=== PATIENT | male | born 1980 | race Caucasian/White ===

== ENCOUNTER 2024-05-03 11:55 | Inpatient (IN) | payer MEDICAID ==
[2024-05-03] VITALS (19 sets, daily range): BP systolic 92–167; BP diastolic 77–109; PULSE 105–119; RESP 12–28; O2SAT 89–98
[~2024-05-03] VITALS: Ht 170.2 cm; Wt 105.8 kg
[2024-05-03] MEDS: propofol 1000mg/100ml bottle 100 ML IV ONE (13:09)
[2024-05-03] MEDS ORDERED: fentaNYL 50mcg/ml PF inj. 2,500 MCG in normal saline 250ml IV soln 200 ML IV SCH (13:25)
[2024-05-03] MEDS: FENTANYL 1000MCG/NS 100 ML BAG /PF IV SCH (13:30)
[2024-05-03 14:01] LABS: ABG BASE EXCESS -2.3 mmol/L (-2.0-3.0); ABG HCO3 24.3 mmol/L (21.0-28.0); ABG OXYGEN SATURATION 94.9 % (94.0-98.0); ABG PCO2 (T) 52.7 mmHg (35.0-48.0); ABG PH (T) 7.285 (7.350-7.450); ABG PO2 (T) 92.9 mmHg (83.0-108.0); ALLEN'S TEST POSITIVE; FCOHb 0.4 % (0.5-1.5); FHHb 5.1 % (0.0-5.0); FMetHb 0.1 % (0.0-1.5); FO2Hb 94.4 % (94.0-98.0); MODE VENT - AC; PATIENT TEMPERATURE 37.6; PEEP 12 cm H2O; RESPIRATORY RATE 12 b/min; TIDAL VOLUME 450 mL; TOTAL HEMOGLOBIN 8.5 G/dl (13.5-17.5)
[2024-05-03] MEDS: COMMUNICATION ORDER 1 EA MISC MC ONE (14:10)
[2024-05-03 15:34] LABS: BASOPHILS # (AUTO) 0.1 X10'3 (0-0.2); BASOPHILS % (AUTO) 0.7 % (0-1); EOSINOPHILS # (AUTO) 0.2 X10'3 (0-0.9); EOSINOPHILS % (AUTO) 1.4 % (0-6); HEMATOCRIT 22.2 % (42.0-52.0); HEMOGLOBIN 7.3 g/dl (14.0-17.9); LYMPHOCYTES # (AUTO) 1.4 X10'3 (1.1-4.8); LYMPHOCYTES % (AUTO) 9.4 % (21-51); MEAN CORPUSCULAR HEMOGLOBIN 29.5 PG (27.0-31.0); MEAN CORPUSCULAR HGB CONC 32.7 g/dL (33.0-36.5); MEAN CORPUSCULAR VOLUME 90.1 FL (78-98); MEAN PLATELET VOLUME 7.4 FL (7.4-10.4); MONOCYTES # (AUTO) 0.8 X10'3 (0-0.9); MONOCYTES % (AUTO) 5.7 % (2-12); NEUTROPHILS % (AUTO) 82.8 % (42-75); PLATELET COUNT 489 X10'3 (140-440); RED BLOOD COUNT 2.47 X10'6 (4.70-6.10); RED CELL DISTRIBUTION WIDTH 18.4 % (11.5-14.5); WHITE BLOOD COUNT 14.5 X10'3 (4.5-11.0)
[2024-05-03 15:35] LABS: ALANINE AMINOTRANSFERASE 16 U/L (12-78); ALBUMIN 1.7 G/DL (3.4-5.0); ALBUMIN/GLOBULIN RATIO 0.3 (1.1-1.5); ALKALINE PHOSPHATASE 84 IU/L (46-116); ANION GAP 13 (8-16); ASPARTATE AMINO TRANSFERASE 31 U/L (10-37); BILIRUBIN,TOTAL 0.5 MG/DL (0.1-1.0); BLOOD UREA NITROGEN 63 MG/DL (7-18); BUN/CREATININE RATIO 23.6 (10.0-20.0); CALCIUM 9.1 MG/DL (8.5-10.1); CHLORIDE 90 MMOL/L (99-107); CREATININE 2.67 MG/DL (0.60-1.10); GLUCOSE 129 MG/DL (70-104); MAGNESIUM 2.1 MG/DL (1.5-2.4); PHOSPHORUS 8.1 MG/DL (2.3-4.5); POTASSIUM 3.9 MMOL/L (3.5-5.1); SODIUM 128 MMOL/L (135-145); TOTAL CARBON DIOXIDE 25.4 MMOL/L (24-32); eCRCL 34 ML/MIN; eGFR 27 ML/MIN
[2024-05-03] MEDS: propofol 1000mg/100ml bottle 100 ML IV SCH (16:17)
[2024-05-03 16:22] LABS: ANISOCYTOSIS 2+; PLATELET ESTIMATE INCREASED; SMUDGE CELLS FEW; TOTAL CELLS COUNTED 100
[2024-05-03 16:23] LABS: ROULEAUX 3+; TEAR DROP CELLS FEW
[2024-05-03 16:49] LABS: BILIRUBIN,URINE NEGATIVE (Neg); CLARITY,URINE CLOUDY (Clear); COLOR,URINE YELLOW (Yellow); GLUCOSE, URINE NEGATIVE (Neg); KETONES,URINE NEGATIVE (Neg); LEUKOCYTE ESTERASE ,URINE NEGATIVE (Neg); NITRITES, URINE NEGATIVE (Neg); OCCULT BLOOD,URINE NEGATIVE (Neg); PH,URINE 5.5 (4.8-8.0); PROTEIN,URINE NEGATIVE (Neg); UROBILINOGEN,URINE 0.2 E.U/dL (0.2-1.0)
[2024-05-03 16:56] LABS: UA COLLECTION TYPE NON-SPECIFIED
[2024-05-03 17:04] LABS: URIC ACID CRYSTALS 2+ /HPF (NEGATIVE)
[2024-05-03 17:05] LABS: YEAST MANY /HPF (NEGATIVE)
[2024-05-03 17:06] LABS: BACTERIA,URINE FEW /HPF (Neg); RBC,URINE 0-2 /HPF (0-2); SQUAMOUS EPITHELIAL CELL,UR FEW /LPF (FEW); WBC,URINE 0-4 /HPF (0-4)
[2024-05-03] MEDS: fentaNYL 2,500 MCG in Normal Saline 250ml IV soln bag IV SCH (17:12)
[2024-05-03] MEDS ORDERED: morphine 2 MG/ML inj. syringe IV PRN (17:20)
[2024-05-03] MEDS ORDERED: ondansetron/PF 4mg/2ml inj IV PRN (17:20)
[2024-05-03] MEDS ORDERED: acetaminophen 325mg tablet PO PRN ×2 (17:20)
[2024-05-03] MEDS ORDERED: morphine 4 MG/ML inj SYRINge IV PRN (17:20)
[2024-05-03] MEDS ORDERED: ACET200V11 NEB (17:40)
[2024-05-03] MEDS ORDERED: Furosemide IV (17:40)
[2024-05-03] MEDS ORDERED: METOCLOPRAMIDE IV (17:40)
[2024-05-03] MEDS ORDERED: THIA50TA10 PO (17:40)
[2024-05-03] MEDS ORDERED: DILT30TA34 PO (17:40)
[2024-05-03] MEDS ORDERED: ZAR2.5T PO (17:40)
[2024-05-03] MEDS ORDERED: PANTOPRAZOLE (17:40)
[2024-05-03] MEDS ORDERED: ATR0.5NEB IH (17:40)
[2024-05-03] MEDS ORDERED: MAGN1PIG IV (17:40)
[2024-05-03] MEDS ORDERED: FENTANYL (17:40)
[2024-05-03] MEDS ORDERED: HEPARIN SQ (17:40)
[2024-05-03] MEDS ORDERED: POTASSIUM 20MEQ/15ML PO (17:40)
[2024-05-03] MEDS ORDERED: CHLO473M2 PO (17:40)
[2024-05-03] MEDS ORDERED: FOLI0.4T14 PO (17:40)
[2024-05-03] MEDS ORDERED: LEVE100034 IV (17:40)
[2024-05-03] MEDS ORDERED: CEFT2VIA12 IV (17:40)
[2024-05-03] MEDS ORDERED: CLON1PAT42 TD (17:40)
[2024-05-03] MEDS ORDERED: PROPOFOL (17:41)
[2024-05-03] MEDS ORDERED: VANC1VIA38 IV (17:41)
[2024-05-03] MEDS ORDERED: cloNIDine 0.2 MG/24 HR patch (7 day patch) TD SCH (18:00)
[2024-05-03] MEDS ORDERED: metoclopramide 5 mg/ml inj IV PRN (18:15)
[2024-05-03] MEDS ORDERED: acetaminophen 325mg tablet PEG PRN (18:15)
[2024-05-03] MEDS: vancomycin/NS 1 GM ADD-VANTAGE 250 ML IV SCH (18:54)
[2024-05-03] MEDS: furosemide 20 MG/2 ML vial IV SCH (20:38)
[2024-05-03] MEDS: levetiracetam inj 1,000 MG in normal saline 100ml IV soln 100 ML IV SCH (20:39)
[2024-05-03 21:28] LABS: BASOPHILS # (AUTO) 0.2 X10'3 (0-0.2); BASOPHILS % (AUTO) 1.5 % (0-1); EOSINOPHILS # (AUTO) 0.1 X10'3 (0-0.9); EOSINOPHILS % (AUTO) 0.7 % (0-6); LYMPHOCYTES # (AUTO) 1.2 X10'3 (1.1-4.8); LYMPHOCYTES % (AUTO) 9.7 % (21-51); MEAN PLATELET VOLUME 7.6 FL (7.4-10.4); MONOCYTES # (AUTO) 0.7 X10'3 (0-0.9); MONOCYTES % (AUTO) 5.2 % (2-12); NEUTROPHILS # (AUTO) 10.6 X10'3 (1.8-7.7); NEUTROPHILS % (AUTO) 82.9 % (42-75); PLATELET COUNT 430 X10'3 (140-440); RED BLOOD COUNT 2.23 X10'6 (4.70-6.10); WHITE BLOOD COUNT 12.8 X10'3 (4.5-11.0)
[2024-05-03 21:45] LABS: ALBUMIN 1.4 G/DL (3.4-5.0); ALKALINE PHOSPHATASE 74 IU/L (46-116); ANION GAP 13 (8-16); BLOOD UREA NITROGEN 62 MG/DL (7-18); BUN/CREATININE RATIO 21.2 (10.0-20.0); CHLORIDE 87 MMOL/L (99-107); CREATININE 2.93 MG/DL (0.60-1.10); MAGNESIUM 1.9 MG/DL (1.5-2.4); SODIUM 124 MMOL/L (135-145); TOTAL CARBON DIOXIDE 23.7 MMOL/L (24-32); eCRCL 31 ML/MIN; eGFR 24 ML/MIN
[2024-05-03] MEDS: ringers solution, lacted 1,000 ML IV SCH (22:40)
[2024-05-03] MEDS: ringers solution, lacted 1,000 ML IV ONE ×2 (22:43→23:57)
[2024-05-03 22:53] LABS: HEMOGLOBIN 7.3 g/dl (14.0-17.9)
[2024-05-03 22:54] LABS: HEMATOCRIT 20.5 % (42.0-52.0); MEAN CORPUSCULAR HEMOGLOBIN 32.5 PG (27.0-31.0); MEAN CORPUSCULAR HGB CONC 35.8 g/dL (33.0-36.5); MEAN CORPUSCULAR VOLUME 90.8 FL (78-98)
[2024-05-03 22:55] LABS: RED CELL DISTRIBUTION WIDTH 18.7 % (11.5-14.5)
[2024-05-03 22:56] LABS: ALANINE AMINOTRANSFERASE 18 U/L (12-78); ALBUMIN/GLOBULIN RATIO 0.3 (1.1-1.5); ASPARTATE AMINO TRANSFERASE 30 U/L (10-37); BILIRUBIN,TOTAL 0.8 MG/DL (0.1-1.0); CALCIUM 8.5 MG/DL (8.5-10.1); PHOSPHORUS 7.6 MG/DL (2.3-4.5)
[2024-05-03 23:02] LABS: GLUCOSE 108 MG/DL (70-104)
[2024-05-04] VITALS (45 sets, daily range): BP systolic 122–173; BP diastolic 66–107; PULSE 111–130; RESP 11–29; TEMP 98.1; O2SAT 92–99
[2024-05-04] MEDS: heparin, porcine 5000 units/ml vial SQ SCH (00:32)
[2024-05-04 02:52] LABS: BASOPHILS # (AUTO) 0.1 X10'3 (0-0.2); BASOPHILS % (AUTO) 0.6 % (0-1); EOSINOPHILS # (AUTO) 0.1 X10'3 (0-0.9); EOSINOPHILS % (AUTO) 0.7 % (0-6); LYMPHOCYTES # (AUTO) 1.4 X10'3 (1.1-4.8); LYMPHOCYTES % (AUTO) 9.7 % (21-51); MEAN CORPUSCULAR HEMOGLOBIN 29.3 PG (27.0-31.0); MEAN CORPUSCULAR HGB CONC 32.6 g/dL (33.0-36.5); MEAN CORPUSCULAR VOLUME 89.9 FL (78-98); MEAN PLATELET VOLUME 7.3 FL (7.4-10.4); MONOCYTES # (AUTO) 0.7 X10'3 (0-0.9); MONOCYTES % (AUTO) 5.2 % (2-12); NEUTROPHILS # (AUTO) 12.1 X10'3 (1.8-7.7); NEUTROPHILS % (AUTO) 83.8 % (42-75); PLATELET COUNT 467 X10'3 (140-440); RED BLOOD COUNT 2.28 X10'6 (4.70-6.10); RED CELL DISTRIBUTION WIDTH 18.8 % (11.5-14.5); WHITE BLOOD COUNT 14.4 X10'3 (4.5-11.0)
[2024-05-04 03:01] LABS: % IRON SATURATION 17 % (11-46); IRON 23 UG/DL (53-167); TOTAL IRON BINDING CAPACITY 133 UG/DL (259-388)
[2024-05-04 03:07] LABS: HEMOGLOBIN 6.7 g/dl (14.0-17.9)
[2024-05-04 03:08] LABS: HEMATOCRIT 20.5 % (42.0-52.0)
[2024-05-04 03:31] LABS: APTT 22 SECONDS (22-32); INR 1.1 INR
[2024-05-04 03:40] LABS: ALANINE AMINOTRANSFERASE 22 U/L (12-78); ALBUMIN 1.6 G/DL (3.4-5.0); ALBUMIN/GLOBULIN RATIO 0.3 (1.1-1.5); ALKALINE PHOSPHATASE 79 IU/L (46-116); ANION GAP 13 (8-16); ASPARTATE AMINO TRANSFERASE 31 U/L (10-37); BILIRUBIN,TOTAL 0.6 MG/DL (0.1-1.0); BLOOD UREA NITROGEN 65 MG/DL (7-18); CALCIUM 9.4 MG/DL (8.5-10.1); CHLORIDE 90 MMOL/L (99-107); CREATININE 3.09 MG/DL (0.60-1.10); GLUCOSE 102 MG/DL (70-104); MAGNESIUM 2.1 MG/DL (1.5-2.4); PHOSPHORUS 8.4 MG/DL (2.3-4.5); POTASSIUM 3.9 MMOL/L (3.5-5.1); SODIUM 128 MMOL/L (135-145); TOTAL PROTEIN 7.9 G/DL (6.4-8.2); TRIGLYCERIDES 479 MG/DL (20-135); eCRCL 29 ML/MIN; eGFR 22 ML/MIN
[2024-05-04] MEDS: furosemide 40mg/4ml inj IV ONE (03:48)
[2024-05-04 04:25] LABS: ABG BASE EXCESS -7.3 mmol/L (-2.0-3.0); ABG HCO3 19.8 mmol/L (21.0-28.0); ABG OXYGEN SATURATION 95.3 % (94.0-98.0); ABG PCO2 (T) 49.7 mmHg (35.0-48.0); ABG PO2 (T) 94.6 mmHg (83.0-108.0); ALLEN'S TEST Modified; FCOHb 0.9 % (0.5-1.5); FHHb 4.7 % (0.0-5.0); FO2Hb 94.4 % (94.0-98.0); MODE APRV30/10 4.25/0.75; PATIENT TEMPERATURE 37.3; TOTAL HEMOGLOBIN 7.2 G/dl (13.5-17.5)
[2024-05-04 05:07] LABS: FERRITIN 1424 NG/ML (26-388)
[2024-05-04] MEDS ORDERED: folic acid 1mg tablet PO SCH (08:00)
[2024-05-04] MEDS ORDERED: thiamine 100mg tablet NG SCH (08:00)
[2024-05-04] MEDS ORDERED: metolazone 2.5mg tablet NG SCH (08:00)
[2024-05-04] MEDS: furosemide 20 MG/2 ML vial IV SCH (08:44)
[2024-05-04] MEDS: levetiracetam-NACL1000mg/100ml 100 ML IV SCH (08:45)
[2024-05-04] MEDS: pantoprazole 40 MG vial IV SCH (08:54)
[2024-05-04] MEDS: metolazone 2.5mg tablet PEG SCH (09:20)
[2024-05-04] MEDS: nicotine 14mg patch - 24hr TD SCH (09:20)
[2024-05-04] MEDS: thiamine 100mg tablet PEG SCH (09:20)
[2024-05-04] MEDS: folic acid 1mg tablet PEG SCH (09:20)
[2024-05-04] MEDS: cefepime 1GM/NS ADD-VANTAGE 100 ML IV SCH (09:21)
[2024-05-04] MEDS ORDERED: albumin (human) 25% 100ml IV 200 ML IV PRN (11:35)
[2024-05-04 11:58] LABS: BILIRUBIN,URINE NEGATIVE (Neg); CLARITY,URINE SLIGHTLY CLOUDY (Clear); COLOR,URINE YELLOW (Yellow); GLUCOSE, URINE NEGATIVE (Neg); HEMATOCRIT 27.2 % (42.0-52.0); HEMOGLOBIN 8.8 g/dl (14.0-17.9); KETONES,URINE NEGATIVE (Neg); LEUKOCYTE ESTERASE ,URINE NEGATIVE (Neg); MEAN CORPUSCULAR HEMOGLOBIN 28.9 PG (27.0-31.0); MEAN CORPUSCULAR HGB CONC 32.2 g/dL (33.0-36.5); MEAN CORPUSCULAR VOLUME 89.9 FL (78-98); MEAN PLATELET VOLUME 7.5 FL (7.4-10.4); NITRITES, URINE NEGATIVE (Neg); OCCULT BLOOD,URINE NEGATIVE (Neg); PH,URINE 5.5 (4.8-8.0); PLATELET COUNT 450 X10'3 (140-440); PROTEIN,URINE NEGATIVE (Neg); RED BLOOD COUNT 3.03 X10'6 (4.70-6.10); RED CELL DISTRIBUTION WIDTH 17.6 % (11.5-14.5); UROBILINOGEN,URINE 0.2 E.U/dL (0.2-1.0); WHITE BLOOD COUNT 19.1 X10'3 (4.5-11.0)
[2024-05-04 12:01] LABS: UA COLLECTION TYPE NON-SPECIFIED
[2024-05-04 12:05] LABS: SQUAMOUS EPITHELIAL CELL,UR FEW /LPF (FEW); YEAST MANY /HPF (NEGATIVE)
[2024-05-04 12:06] LABS: URIC ACID CRYSTALS 4+ /HPF (NEGATIVE)
[2024-05-04 12:07] LABS: BACTERIA,URINE FEW /HPF (Neg); TRANSITIONAL EPI CELLS,URINE FEW /HPF; WBC,URINE 0-4 /HPF (0-4)
[2024-05-04 12:11] LABS: URINE AMPHETAMINE SCREEN NEGATIVE (Neg); URINE BARBITUATE SCREEN NEGATIVE (Neg); URINE BENZODIAZEPINES SCREEN POSITIVE (Neg); URINE CANNABINOID SCREEN NEGATIVE (Neg); URINE COCAINE SCREEN NEGATIVE (Neg); URINE METHADONE SCREEN NEGATIVE (Neg); URINE OPIATE SCREEN POSITIVE (Neg); URINE PHENCYCLIDINE SCREEN NEGATIVE (Neg)
[2024-05-04] MEDS: metoprolol tartrate 50mg tablet PO SCH (12:47)
[2024-05-04] MEDS: midazolam 100mg in NS 100ml 100 ML IV SCH (12:48)
[2024-05-04] MEDS: MULTIVIT-MIN/FERROUS GLUCONATE 9 MG/15 ML LIQUID GT SCH (12:48)
[2024-05-04] MEDS: midazolam 1 mg/ML 2ml injection IV ONE (12:48)
[2024-05-04] MEDS ORDERED: acetaminophen 325mg tablet GT PRN (13:13)
[2024-05-04] MEDS: mineral oil/petrolatum ophthal oint EACHEYE SCH (14:00)
[2024-05-04] MEDS: metoprolol tartrate 50mg tablet GT SCH (14:00)
[2024-05-04] MEDS: EPOETIN ALFA-EPBX 20,000 UNIT/ML 1 ML MDV IV ONE (14:51)
[2024-05-04] MEDS: heparin 1,000unit/ml 10ml vial 10 ML IV ONE (14:53)
[2024-05-04] MEDS: heparin 1,000 units/ml 10ml inj HE ONE ×2 (14:53→14:54)
[2024-05-04] MEDS: heparin 1,000 units/ml 10ml inj IV ONE (14:54)
[2024-05-04] MEDS: mannitol 12.5gm/50mL VIAL IV ONE (14:59)
[2024-05-04] MEDS ORDERED: cloNIDine 0.2 MG/24 HR patch (7 day patch) TD SCH (18:00)
[2024-05-05] VITALS (49 sets, daily range): BP systolic 101–177; BP diastolic 55–104; PULSE 114–146; RESP 11–29; TEMP 100.7–102.2; O2SAT 94–98
[2024-05-05 03:06] LABS: APTT 29 SECONDS (22-32); BASOPHILS # (AUTO) 0.1 X10'3 (0-0.2); BASOPHILS % (AUTO) 0.5 % (0-1); EOSINOPHILS % (AUTO) 0.1 % (0-6); HEMATOCRIT 25.3 % (42.0-52.0); HEMOGLOBIN 8.2 g/dl (14.0-17.9); INR 1.1 INR; LYMPHOCYTES # (AUTO) 1.2 X10'3 (1.1-4.8); LYMPHOCYTES % (AUTO) 8.8 % (21-51); MEAN CORPUSCULAR HEMOGLOBIN 28.9 PG (27.0-31.0); MEAN CORPUSCULAR HGB CONC 32.3 g/dL (33.0-36.5); MEAN CORPUSCULAR VOLUME 89.5 FL (78-98); MEAN PLATELET VOLUME 7.5 FL (7.4-10.4); MONOCYTES # (AUTO) 0.8 X10'3 (0-0.9); NEUTROPHILS # (AUTO) 11.7 X10'3 (1.8-7.7); NEUTROPHILS % (AUTO) 84.6 % (42-75); PLATELET COUNT 403 X10'3 (140-440); PROTHROMBIN TIME 11.3 SECONDS (9.0-12.0); RED BLOOD COUNT 2.82 X10'6 (4.70-6.10); RED CELL DISTRIBUTION WIDTH 18.2 % (11.5-14.5); WHITE BLOOD COUNT 13.8 X10'3 (4.5-11.0)
[2024-05-05 03:09] LABS: ALANINE AMINOTRANSFERASE 17 U/L (12-78); ALBUMIN 1.7 G/DL (3.4-5.0); ALBUMIN/GLOBULIN RATIO 0.3 (1.1-1.5); ALKALINE PHOSPHATASE 81 IU/L (46-116); ANION GAP 13 (8-16); ASPARTATE AMINO TRANSFERASE 24 U/L (10-37); BILIRUBIN,TOTAL 0.5 MG/DL (0.1-1.0); BLOOD UREA NITROGEN 55 MG/DL (7-18); BUN/CREATININE RATIO 16.8 (10.0-20.0); CALCIUM 9.5 MG/DL (8.5-10.1); CHLORIDE 97 MMOL/L (99-107); CREATININE 3.28 MG/DL (0.60-1.10); GLUCOSE 125 MG/DL (70-104); MAGNESIUM 2.3 MG/DL (1.5-2.4); PHOSPHORUS 7.4 MG/DL (2.3-4.5); POTASSIUM 3.7 MMOL/L (3.5-5.1); SODIUM 136 MMOL/L (135-145); TOTAL CARBON DIOXIDE 26.5 MMOL/L (24-32); TOTAL PROTEIN 7.6 G/DL (6.4-8.2); eCRCL 28 ML/MIN; eGFR 21 ML/MIN
[2024-05-05 04:18] LABS: ABG BASE EXCESS -3.3 mmol/L (-2.0-3.0); ABG HCO3 24.5 mmol/L (21.0-28.0); ABG OXYGEN SATURATION 97.1 % (94.0-98.0); ABG PCO2 (T) 59.8 mmHg (35.0-48.0); ABG PH (T) 7.231 (7.350-7.450); ABG PO2 (T) 101.5 mmHg (83.0-108.0); ALLEN'S TEST Modified; FCOHb 0.1 % (0.5-1.5); FHHb 2.9 % (0.0-5.0); FMetHb 0.3 % (0.0-1.5); FO2Hb 96.7 % (94.0-98.0); MODE APRV 25/10 4.25/0.75; PATIENT TEMPERATURE 37.2; TOTAL HEMOGLOBIN 9.3 G/dl (13.5-17.5)
[2024-05-05 05:58] LABS: TOTAL CELLS COUNTED 100
[2024-05-05 05:59] LABS: ANISOCYTOSIS 2+; GIANT PLATELET FEW; PLATELET ESTIMATE NORMAL
[2024-05-05 06:00] LABS: ELLIPTOCYTES FEW; POLYCHROMASIA FEW
[2024-05-05] MEDS: VANCOMYCIN LEVEL IV ONE (06:30)
[2024-05-05] MEDS ORDERED: VANCOMYCIN 1GM 200ML H20 (PEG) 200 ML IV SCH (08:16)
[2024-05-05] MEDS ORDERED: simethicone 40mg/0.6ml oral drops 30ml ONE (08:25)
[2024-05-05] MEDS ORDERED: epiNEPHrine 1 mg/ml inj ONE (08:25)
[2024-05-05] MEDS: epiNEPHrine 0.1mg/ml 10ml syringe ONE (08:38)
[2024-05-05] MEDS ORDERED: epiNEPHrine 0.1mg/ml 10ml syringe ONE (08:41)
[2024-05-05] MEDS ORDERED: normal saline 1000ml 100 ML IV PRN (09:10)
[2024-05-05] MEDS ORDERED: acetaminophen 1,000mg/100ml IV 100 ML IV PRN ×2 (11:05→16:45)
[2024-05-05 12:20] LABS: C DIFF ANTIGEN NEGATIVE (NEGATIVE); C DIFF SPECIMEN=DIARRHEA? ACCEPTABLE; C DIFFICILE TOXINS A&B NEGATIVE (Neg)
[2024-05-05] MEDS: EPOETIN ALFA-EPBX 20,000 UNIT/ML 1 ML MDV IV ONE (13:48)
[2024-05-05] MEDS: heparin 1,000 units/ml 10ml inj HE ONE ×2 (13:49→13:50)
[2024-05-05] MEDS: FENTANYL 1000MCG/NS 100 ML BAG /PF IV SCH (13:58)
[2024-05-05] MEDS: acetaminophen 1,000mg/100ml IV 100 ML IV ONE (15:14)
[2024-05-05] MEDS: folic acid 1mg tablet GT SCH (15:27)
[2024-05-05] MEDS: MEROPENEM 1GM/NS 100ML IVPB IV SCH (19:38)
[2024-05-05] MEDS: acetaminophen 1,000mg/100ml IV 100 ML IV PRN (21:06)
[2024-05-06] VITALS (44 sets, daily range): BP systolic 109–162; BP diastolic 60–149; PULSE 101–125; RESP 12–28; TEMP 99.6–100.4; O2SAT 89–99
[2024-05-06 02:33] LABS: BASOPHILS # (AUTO) 0.1 X10'3 (0-0.2); BASOPHILS % (AUTO) 1.1 % (0-1); EOSINOPHILS % (AUTO) 0.2 % (0-6); HEMATOCRIT 27.1 % (42.0-52.0); LYMPHOCYTES # (AUTO) 1.1 X10'3 (1.1-4.8); LYMPHOCYTES % (AUTO) 8.1 % (21-51); MEAN CORPUSCULAR HEMOGLOBIN 29.8 PG (27.0-31.0); MEAN CORPUSCULAR HGB CONC 33.3 g/dL (33.0-36.5); MEAN CORPUSCULAR VOLUME 89.4 FL (78-98); MEAN PLATELET VOLUME 7.3 FL (7.4-10.4); MONOCYTES # (AUTO) 0.7 X10'3 (0-0.9); MONOCYTES % (AUTO) 4.9 % (2-12); NEUTROPHILS # (AUTO) 11.4 X10'3 (1.8-7.7); NEUTROPHILS % (AUTO) 85.7 % (42-75); PLATELET COUNT 428 X10'3 (140-440); RED BLOOD COUNT 3.03 X10'6 (4.70-6.10); RED CELL DISTRIBUTION WIDTH 18.2 % (11.5-14.5); WHITE BLOOD COUNT 13.4 X10'3 (4.5-11.0)
[2024-05-06 02:46] LABS: APTT 29 SECONDS (22-32); INR 1.1 INR; PROTHROMBIN TIME 11.6 SECONDS (9.0-12.0)
[2024-05-06 02:47] LABS: ALANINE AMINOTRANSFERASE 35 U/L (12-78); ALBUMIN 1.8 G/DL (3.4-5.0); ALBUMIN/GLOBULIN RATIO 0.3 (1.1-1.5); ALKALINE PHOSPHATASE 91 IU/L (46-116); ANION GAP 9 (8-16); ASPARTATE AMINO TRANSFERASE 32 U/L (10-37); BILIRUBIN,TOTAL 0.5 MG/DL (0.1-1.0); BLOOD UREA NITROGEN 51 MG/DL (7-18); BUN/CREATININE RATIO 16.8 (10.0-20.0); CALCIUM 9.2 MG/DL (8.5-10.1); CHLORIDE 99 MMOL/L (99-107); CREATININE 3.04 MG/DL (0.60-1.10); GLUCOSE 129 MG/DL (70-104); MAGNESIUM 2.3 MG/DL (1.5-2.4); PHOSPHORUS 4.3 MG/DL (2.3-4.5); POTASSIUM 3.8 MMOL/L (3.5-5.1); PREALBUMIN 15.9 MG/DL (19-36); SODIUM 135 MMOL/L (135-145); TOTAL CARBON DIOXIDE 27.5 MMOL/L (24-32); TOTAL PROTEIN 8.1 G/DL (6.4-8.2); eCRCL 30 ML/MIN; eGFR 23 ML/MIN
[2024-05-06 02:56] LABS: VANCOMYCIN,RANDOM 37.7 ug/mL (20.0-30.0)
[2024-05-06] MEDS: VANCOMYCIN LEVEL IV SCH (03:00)
[2024-05-06 03:45] LABS: ABG BASE EXCESS -3.1 mmol/L (-2.0-3.0); ABG HCO3 22.3 mmol/L (21.0-28.0); ABG OXYGEN SATURATION 95.5 % (94.0-98.0); ABG PCO2 (T) 43.9 mmHg (35.0-48.0); ABG PO2 (T) 90.7 mmHg (83.0-108.0); ALLEN'S TEST Modified; FCOHb 0.1 % (0.5-1.5); FHHb 4.5 % (0.0-5.0); FMetHb 0.3 % (0.0-1.5); FO2Hb 95.1 % (94.0-98.0); MODE APRV 30/10 4.25/0.75; PATIENT TEMPERATURE 38.2; TOTAL HEMOGLOBIN 9.7 G/dl (13.5-17.5)
[2024-05-06] MEDS ORDERED: VANCOMYCIN 1GM 200ML H20 (PEG) 200 ML IV PRN (08:00)
[2024-05-06] MEDS: labetalol 20mg/4ml (5mg/ml) syringe IV PRN (16:07)
[2024-05-06] MEDS: heparin 1,000 units/ml 10ml inj HE ONE ×2 (17:43→17:45)
[2024-05-06] MEDS: heparin 1,000unit/ml 10ml vial 10 ML IV ONE (17:43)
[2024-05-06] MEDS: heparin 1,000 units/ml 10ml inj IV ONE (17:44)
[2024-05-06] MEDS: EPOETIN ALFA-EPBX 20,000 UNIT/ML 1 ML MDV IV ONE (18:05)
[2024-05-07] VITALS (49 sets, daily range): BP systolic 103–164; BP diastolic 61–104; PULSE 97–133; RESP 22–33; TEMP 101.1–101.8; O2SAT 91–97
[2024-05-07 02:35] LABS: BASOPHILS # (AUTO) 0.1 X10'3 (0-0.2); BASOPHILS % (AUTO) 0.9 % (0-1); EOSINOPHILS # (AUTO) 0.1 X10'3 (0-0.9); EOSINOPHILS % (AUTO) 0.7 % (0-6); HEMATOCRIT 26.4 % (42.0-52.0); HEMOGLOBIN 8.6 g/dl (14.0-17.9); LYMPHOCYTES # (AUTO) 1.8 X10'3 (1.1-4.8); LYMPHOCYTES % (AUTO) 12.6 % (21-51); MEAN CORPUSCULAR HEMOGLOBIN 29.1 PG (27.0-31.0); MEAN CORPUSCULAR HGB CONC 32.7 g/dL (33.0-36.5); MEAN CORPUSCULAR VOLUME 89.1 FL (78-98); MEAN PLATELET VOLUME 7.3 FL (7.4-10.4); MONOCYTES # (AUTO) 0.9 X10'3 (0-0.9); MONOCYTES % (AUTO) 6.3 % (2-12); NEUTROPHILS # (AUTO) 11.4 X10'3 (1.8-7.7); NEUTROPHILS % (AUTO) 79.5 % (42-75); PLATELET COUNT 407 X10'3 (140-440); RED BLOOD COUNT 2.97 X10'6 (4.70-6.10); RED CELL DISTRIBUTION WIDTH 18.7 % (11.5-14.5); WHITE BLOOD COUNT 14.3 X10'3 (4.5-11.0)
[2024-05-07 02:46] LABS: ALANINE AMINOTRANSFERASE 74 U/L (12-78); ALBUMIN 1.8 G/DL (3.4-5.0); ALBUMIN/GLOBULIN RATIO 0.3 (1.1-1.5); ALKALINE PHOSPHATASE 98 IU/L (46-116); ANION GAP 11 (8-16); ASPARTATE AMINO TRANSFERASE 80 U/L (10-37); BILIRUBIN,TOTAL 0.5 MG/DL (0.1-1.0); BLOOD UREA NITROGEN 65 MG/DL (7-18); BUN/CREATININE RATIO 19.2 (10.0-20.0); CALCIUM 9.1 MG/DL (8.5-10.1); CHLORIDE 99 MMOL/L (99-107); CREATININE 3.39 MG/DL (0.60-1.10); GLUCOSE 123 MG/DL (70-104); MAGNESIUM 2.2 MG/DL (1.5-2.4); PHOSPHORUS 5.1 MG/DL (2.3-4.5); POTASSIUM 4.3 MMOL/L (3.5-5.1); SODIUM 135 MMOL/L (135-145); TOTAL CARBON DIOXIDE 25.2 MMOL/L (24-32); TOTAL PROTEIN 7.8 G/DL (6.4-8.2); TRIGLYCERIDES 336 MG/DL (20-135); VANCOMYCIN,RANDOM 29.8 ug/mL (20.0-30.0); eCRCL 27 ML/MIN; eGFR 20 ML/MIN
[2024-05-07 03:00] LABS: APTT 26 SECONDS (22-32); INR 1.1 INR; PROTHROMBIN TIME 11.5 SECONDS (9.0-12.0)
[2024-05-07 03:28] LABS: ABG BASE EXCESS -2.7 mmol/L (-2.0-3.0); ABG HCO3 23.6 mmol/L (21.0-28.0); ABG OXYGEN SATURATION 95.7 % (94.0-98.0); ABG PCO2 (T) 51.1 mmHg (35.0-48.0); ABG PH (T) 7.289 (7.350-7.450); ABG PO2 (T) 90.5 mmHg (83.0-108.0); ALLEN'S TEST Modified; FCOHb 0.5 % (0.5-1.5); FHHb 4.3 % (0.0-5.0); FMetHb 0.3 % (0.0-1.5); FO2Hb 94.9 % (94.0-98.0); MODE prvc; PATIENT TEMPERATURE 38.4; PEEP 10 cm H2O; RESPIRATORY RATE 12 b/min; TIDAL VOLUME 450 mL; TOTAL HEMOGLOBIN 9.7 G/dl (13.5-17.5)
[2024-05-07 05:37] LABS: HBSAG SCREEN Negative (Negative)
[2024-05-07 05:48] LABS: ANISOCYTOSIS 2+; NUCLEATED RED BLOOD CELLS 1 /100WBC (0-0); PLATELET ESTIMATE NORMAL; TOTAL CELLS COUNTED 100
[2024-05-07 05:49] LABS: POLYCHROMASIA FEW
[2024-05-07] MEDS: heparin 1,000 units/ml 10ml inj IV ONE (11:30)
[2024-05-07] MEDS: heparin 1,000 units/ml 10ml inj HE ONE ×2 (11:30→11:50)
[2024-05-07] MEDS: EPOETIN ALFA-EPBX 20,000 UNIT/ML 1 ML MDV IV ONE (11:31)
[2024-05-07 12:16] LABS: THYROID STIMULATING HORMONE 4.49 ulU/ml (0.34-4.50)
[2024-05-08] VITALS (35 sets, daily range): BP systolic 113–174; BP diastolic 67–106; PULSE 106–135; RESP 18–38; O2SAT 92–99
[2024-05-08 02:49] LABS: BASOPHILS # (AUTO) 0.1 X10'3 (0-0.2); EOSINOPHILS # (AUTO) 0.1 X10'3 (0-0.9); EOSINOPHILS % (AUTO) 0.8 % (0-6); HEMATOCRIT 30.1 % (42.0-52.0); HEMOGLOBIN 9.6 g/dl (14.0-17.9); LYMPHOCYTES # (AUTO) 2.5 X10'3 (1.1-4.8); LYMPHOCYTES % (AUTO) 16.4 % (21-51); MEAN CORPUSCULAR HEMOGLOBIN 28.6 PG (27.0-31.0); MEAN CORPUSCULAR HGB CONC 31.9 g/dL (33.0-36.5); MEAN CORPUSCULAR VOLUME 89.8 FL (78-98); MEAN PLATELET VOLUME 7.5 FL (7.4-10.4); MONOCYTES # (AUTO) 1.2 X10'3 (0-0.9); MONOCYTES % (AUTO) 7.7 % (2-12); NEUTROPHILS # (AUTO) 11.2 X10'3 (1.8-7.7); NEUTROPHILS % (AUTO) 74.1 % (42-75); PLATELET COUNT 442 X10'3 (140-440); RED BLOOD COUNT 3.35 X10'6 (4.70-6.10); RED CELL DISTRIBUTION WIDTH 18.6 % (11.5-14.5); WHITE BLOOD COUNT 15.1 X10'3 (4.5-11.0)
[2024-05-08 02:59] LABS: ALANINE AMINOTRANSFERASE 250 U/L (12-78); ALBUMIN 1.9 G/DL (3.4-5.0); ALBUMIN/GLOBULIN RATIO 0.3 (1.1-1.5); ALKALINE PHOSPHATASE 131 IU/L (46-116); ANION GAP 12 (8-16); ASPARTATE AMINO TRANSFERASE 232 U/L (10-37); BILIRUBIN,TOTAL 0.4 MG/DL (0.1-1.0); BLOOD UREA NITROGEN 76 MG/DL (7-18); BUN/CREATININE RATIO 22.8 (10.0-20.0); CALCIUM 8.9 MG/DL (8.5-10.1); CHLORIDE 99 MMOL/L (99-107); CREATININE 3.33 MG/DL (0.60-1.10); GLUCOSE 135 MG/DL (70-104); MAGNESIUM 2.1 MG/DL (1.5-2.4); PHOSPHORUS 4.8 MG/DL (2.3-4.5); POTASSIUM 4.4 MMOL/L (3.5-5.1); SODIUM 136 MMOL/L (135-145); TOTAL CARBON DIOXIDE 25.4 MMOL/L (24-32); eCRCL 27 ML/MIN; eGFR 21 ML/MIN
[2024-05-08 03:27] LABS: APTT 26 SECONDS (22-32); INR 1.1 INR; PROTHROMBIN TIME 11.6 SECONDS (9.0-12.0)
[2024-05-08 03:42] LABS: ABG HCO3 22.1 mmol/L (21.0-28.0); ABG OXYGEN SATURATION 92.7 % (94.0-98.0); ABG PCO2 (T) 39.4 mmHg (35.0-48.0); ABG PH (T) 7.365 (7.350-7.450); ABG PO2 (T) 67.5 mmHg (83.0-108.0); ALLEN'S TEST Modified; FCOHb 0.3 % (0.5-1.5); FHHb 7.3 % (0.0-5.0); FMetHb 0.3 % (0.0-1.5); FO2Hb 92.1 % (94.0-98.0); MODE prvc; PATIENT TEMPERATURE 36.9; PEEP 7 cm H2O; RESPIRATORY RATE 12 b/min; TIDAL VOLUME 450 mL; TOTAL HEMOGLOBIN 10.7 G/dl (13.5-17.5)
[2024-05-08 04:40] LABS: TOTAL CELLS COUNTED 100
[2024-05-08 04:41] LABS: PLATELET ESTIMATE NORMAL
[2024-05-08 04:42] LABS: ANISOCYTOSIS 2+; POLYCHROMASIA FEW
[2024-05-08] MEDS: labetalol 20mg/4ml (5mg/ml) syringe IV PRN (07:22)
[2024-05-08] MEDS: amLODIPine 5mg tablet PEG STA (14:19)
[2024-05-08] MEDS: heparin 1,000 units/ml 10ml inj HE ONE (16:01)
[2024-05-08] MEDS: heparin 1,000 units/ml 10ml inj IV ONE (16:01)
[2024-05-08] MEDS: fluoxetine 20mg/5ml UD cup JT SCH (22:21)
[2024-05-08] MEDS: acetaminophen 325mg tablet GT PRN (22:21)
[2024-05-09] VITALS (49 sets, daily range): BP systolic 89–160; BP diastolic 45–99; PULSE 97–141; RESP 16–37; TEMP 101.6–101.8; O2SAT 89–97
[2024-05-09 02:31] LABS: BASOPHILS # (AUTO) 0.2 X10'3 (0-0.2); BASOPHILS % (AUTO) 1.4 % (0-1); EOSINOPHILS # (AUTO) 0.3 X10'3 (0-0.9); HEMOGLOBIN 9.4 g/dl (14.0-17.9); LYMPHOCYTES # (AUTO) 2.7 X10'3 (1.1-4.8); LYMPHOCYTES % (AUTO) 16.3 % (21-51); MEAN CORPUSCULAR HEMOGLOBIN 28.9 PG (27.0-31.0); MEAN CORPUSCULAR HGB CONC 32.4 g/dL (33.0-36.5); MEAN CORPUSCULAR VOLUME 89.4 FL (78-98); MEAN PLATELET VOLUME 7.4 FL (7.4-10.4); MONOCYTES # (AUTO) 1.4 X10'3 (0-0.9); MONOCYTES % (AUTO) 8.4 % (2-12); NEUTROPHILS # (AUTO) 11.8 X10'3 (1.8-7.7); NEUTROPHILS % (AUTO) 71.9 % (42-75); PLATELET COUNT 447 X10'3 (140-440); RED BLOOD COUNT 3.24 X10'6 (4.70-6.10); RED CELL DISTRIBUTION WIDTH 18.7 % (11.5-14.5); WHITE BLOOD COUNT 16.4 X10'3 (4.5-11.0)
[2024-05-09 02:46] LABS: ALANINE AMINOTRANSFERASE 218 U/L (12-78); ALBUMIN 1.9 G/DL (3.4-5.0); ALBUMIN/GLOBULIN RATIO 0.3 (1.1-1.5); ALKALINE PHOSPHATASE 126 IU/L (46-116); ANION GAP 13 (8-16); ASPARTATE AMINO TRANSFERASE 123 U/L (10-37); BILIRUBIN,TOTAL 0.4 MG/DL (0.1-1.0); BLOOD UREA NITROGEN 115 MG/DL (7-18); BUN/CREATININE RATIO 27.1 (10.0-20.0); CALCIUM 8.9 MG/DL (8.5-10.1); CHLORIDE 99 MMOL/L (99-107); CREATININE 4.24 MG/DL (0.60-1.10); GLUCOSE 129 MG/DL (70-104); MAGNESIUM 2.4 MG/DL (1.5-2.4); PHOSPHORUS 7.4 MG/DL (2.3-4.5); POTASSIUM 5.4 MMOL/L (3.5-5.1); SODIUM 136 MMOL/L (135-145); TOTAL PROTEIN 7.9 G/DL (6.4-8.2); eCRCL 21 ML/MIN; eGFR 16 ML/MIN
[2024-05-09 03:14] LABS: APTT 26 SECONDS (22-32); INR 1.1 INR; PROTHROMBIN TIME 11.9 SECONDS (9.0-12.0)
[2024-05-09 03:18] LABS: TOTAL CELLS COUNTED 100
[2024-05-09 03:19] LABS: BANDS% (MANUAL) 2 % (0-10); NEUTROPHILS % (MANUAL) 65 % (42-75)
[2024-05-09 03:20] LABS: EOSINOPHILS % (MANUAL) 2 % (0-6); LYMPHOCYTES % (MANUAL) 20 % (21-51); METAMYLEOCYTES% (MANUAL) 3 % (0-0); MONOCYTES % (MANUAL) 6 % (2-12); MYELOCYTES % (MANUAL) 2 % (0-0)
[2024-05-09 03:24] LABS: ANISOCYTOSIS 2+; PLATELET ESTIMATE INCREASED; POLYCHROMASIA FEW
[2024-05-09 04:02] LABS: ABG BASE EXCESS -4.4 mmol/L (-2.0-3.0); ABG HCO3 21.9 mmol/L (21.0-28.0); ABG OXYGEN SATURATION 94.1 % (94.0-98.0); ABG PCO2 (T) 46.7 mmHg (35.0-48.0); ABG PH (T) 7.293 (7.350-7.450); ABG PO2 (T) 81.3 mmHg (83.0-108.0); ALLEN'S TEST Modified; FHHb 5.9 % (0.0-5.0); FMetHb 0.3 % (0.0-1.5); FO2Hb 93.8 % (94.0-98.0); MODE VENT - prvc; PATIENT TEMPERATURE 37.6; PEEP 7 cm H2O; RESPIRATORY RATE 12 b/min; TIDAL VOLUME 450 mL; TOTAL HEMOGLOBIN 10.3 G/dl (13.5-17.5)
[2024-05-09] MEDS: amLODIPine 5mg tablet PEG SCH (09:31)
[2024-05-09] MEDS ORDERED: fentaNYL/PF 50MCG/1 ML 2ML syringe IV PRN (10:35)
[2024-05-09] MEDS: fentaNYL/PF 50MCG/1 ML 2ML syringe IV ONE (12:12)
[2024-05-09] MEDS: EPOETIN ALFA-EPBX 20,000 UNIT/ML 1 ML MDV IV ONE (12:49)
[2024-05-09] MEDS: heparin 1,000 units/ml 10ml inj IV ONE (13:22)
[2024-05-09] MEDS: heparin 1,000 units/ml 10ml inj HE ONE ×2 (13:23)
[2024-05-09] MEDS: tPA-cathflo 2mg/2ml IV flush 2 MG/2 ML VIAL IVF ONE (15:32)
[2024-05-10] VITALS (50 sets, daily range): BP systolic 93–145; BP diastolic 50–95; PULSE 99–147; RESP 15–41; TEMP 97.4–99.3; O2SAT 86–96
[2024-05-10 03:08] LABS: BASOPHILS # (AUTO) 0.2 X10'3 (0-0.2); BASOPHILS % (AUTO) 1.3 % (0-1); EOSINOPHILS # (AUTO) 0.2 X10'3 (0-0.9); EOSINOPHILS % (AUTO) 1.6 % (0-6); HEMATOCRIT 26.9 % (42.0-52.0); HEMOGLOBIN 8.6 g/dl (14.0-17.9); LYMPHOCYTES # (AUTO) 2.9 X10'3 (1.1-4.8); LYMPHOCYTES % (AUTO) 19.6 % (21-51); MEAN CORPUSCULAR HEMOGLOBIN 28.8 PG (27.0-31.0); MEAN CORPUSCULAR VOLUME 89.9 FL (78-98); MEAN PLATELET VOLUME 7.7 FL (7.4-10.4); MONOCYTES # (AUTO) 1.2 X10'3 (0-0.9); MONOCYTES % (AUTO) 7.7 % (2-12); NEUTROPHILS # (AUTO) 10.5 X10'3 (1.8-7.7); NEUTROPHILS % (AUTO) 69.8 % (42-75); PLATELET COUNT 407 X10'3 (140-440); RED BLOOD COUNT 2.99 X10'6 (4.70-6.10)
[2024-05-10 03:14] LABS: ABG BASE EXCESS -5.3 mmol/L (-2.0-3.0); ABG HCO3 21.4 mmol/L (21.0-28.0); ABG OXYGEN SATURATION 95.7 % (94.0-98.0); ABG PCO2 (T) 47.8 mmHg (35.0-48.0); ABG PO2 (T) 89.9 mmHg (83.0-108.0); ALLEN'S TEST Modified; FCOHb 0.4 % (0.5-1.5); FHHb 4.3 % (0.0-5.0); FMetHb 0.3 % (0.0-1.5); MODE prvc; PATIENT TEMPERATURE 37.2; PEEP 7 cm H2O; RESPIRATORY RATE 12 b/min; TIDAL VOLUME 450 mL
[2024-05-10 03:33] LABS: APTT 30 SECONDS (22-32); INR 1.1 INR; PROTHROMBIN TIME 11.6 SECONDS (9.0-12.0)
[2024-05-10 03:35] LABS: ALANINE AMINOTRANSFERASE 147 U/L (12-78); ALBUMIN/GLOBULIN RATIO 0.3 (1.1-1.5); ALKALINE PHOSPHATASE 116 IU/L (46-116); ANION GAP 14 (8-16); ASPARTATE AMINO TRANSFERASE 53 U/L (10-37); BILIRUBIN,TOTAL 0.5 MG/DL (0.1-1.0); BLOOD UREA NITROGEN 123 MG/DL (7-18); BUN/CREATININE RATIO 25.9 (10.0-20.0); CALCIUM 9.4 MG/DL (8.5-10.1); CHLORIDE 98 MMOL/L (99-107); CREATININE 4.74 MG/DL (0.60-1.10); GLUCOSE 109 MG/DL (70-104); MAGNESIUM 2.6 MG/DL (1.5-2.4); PHOSPHORUS 8.6 MG/DL (2.3-4.5); POTASSIUM 5.4 MMOL/L (3.5-5.1); PREALBUMIN 23.2 MG/DL (19-36); SODIUM 135 MMOL/L (135-145); TOTAL CARBON DIOXIDE 23.4 MMOL/L (24-32); TOTAL PROTEIN 7.8 G/DL (6.4-8.2); eCRCL 19 ML/MIN; eGFR 14 ML/MIN
[2024-05-10] MEDS: heparin 1,000unit/ml 10ml vial 10 ML IV ONE (15:58)
[2024-05-10] MEDS: heparin 1,000 units/ml 10ml inj HE ONE ×2 (15:59→16:00)
[2024-05-10] MEDS: heparin 1,000 units/ml 10ml inj IV ONE (15:59)
[2024-05-10] MEDS: mannitol 12.5gm/50mL VIAL IV ONE (18:33)
[2024-05-10] MEDS: MEROPENEM 1GM/NS 100ML IVPB IV ONE (21:48)
[2024-05-11] VITALS (35 sets, daily range): BP systolic 92–153; BP diastolic 55–94; PULSE 97–141; RESP 11–54; O2SAT 90–100
[2024-05-11] MEDS ORDERED: glucagon, human recombinant 1mg kit SUBCUT PRN (00:05)
[2024-05-11] MEDS ORDERED: Dextrose 10%-water IV solution 1,000 ML IV SCH (00:05)
[2024-05-11] MEDS ORDERED: dextrose 50%-water 50ml dispensing syringe IV PRN ×2 (00:05)
[2024-05-11] MEDS ORDERED: DEXTROSE 15 GM of carb/4 tabs (each vial/BOTTLE has 4 tablets) PO PRN ×2 (00:05)
[2024-05-11] MEDS: insulin regular, human U-100 10ml vial - multi-dose SQ SCH (02:00)
[2024-05-11 03:13] LABS: BASOPHILS # (AUTO) 0.1 X10'3 (0-0.2); MEAN CORPUSCULAR VOLUME 89.2 FL (78-98); MEAN PLATELET VOLUME 7.5 FL (7.4-10.4)
[2024-05-11 03:16] LABS: BASOPHILS % (AUTO) 0.4 % (0-1); EOSINOPHILS % (AUTO) 0.1 % (0-6); HEMATOCRIT 31.5 % (42.0-52.0); LYMPHOCYTES # (AUTO) 2.5 X10'3 (1.1-4.8); LYMPHOCYTES % (AUTO) 13.5 % (21-51); MEAN CORPUSCULAR HEMOGLOBIN 28.3 PG (27.0-31.0); MEAN CORPUSCULAR HGB CONC 31.7 g/dL (33.0-36.5); MONOCYTES # (AUTO) 1.2 X10'3 (0-0.9); MONOCYTES % (AUTO) 6.6 % (2-12); NEUTROPHILS # (AUTO) 14.5 X10'3 (1.8-7.7); NEUTROPHILS % (AUTO) 79.4 % (42-75); PLATELET COUNT 492 X10'3 (140-440); RED BLOOD COUNT 3.52 X10'6 (4.70-6.10); RED CELL DISTRIBUTION WIDTH 19.1 % (11.5-14.5); WHITE BLOOD COUNT 18.3 X10'3 (4.5-11.0)
[2024-05-11 03:22] LABS: ABG BASE EXCESS -2.4 mmol/L (-2.0-3.0); ABG HCO3 23.7 mmol/L (21.0-28.0); ABG PCO2 (T) 47.8 mmHg (35.0-48.0); ABG PH (T) 7.317 (7.350-7.450); ABG PO2 (T) 84.6 mmHg (83.0-108.0); ALLEN'S TEST Modified; FCOHb 0.4 % (0.5-1.5); FMetHb 0.3 % (0.0-1.5); FO2Hb 94.3 % (94.0-98.0); MODE prvc; PATIENT TEMPERATURE 37.8; PEEP 7 cm H2O; RESPIRATORY RATE 14 b/min; TIDAL VOLUME 450 mL; TOTAL HEMOGLOBIN 11.2 G/dl (13.5-17.5)
[2024-05-11 03:27] LABS: APTT 30 SECONDS (22-32); INR 1.1 INR; PROTHROMBIN TIME 11.9 SECONDS (9.0-12.0)
[2024-05-11 03:28] LABS: ALANINE AMINOTRANSFERASE 119 U/L (12-78); ALBUMIN 2.4 G/DL (3.4-5.0); ALBUMIN/GLOBULIN RATIO 0.3 (1.1-1.5); ALKALINE PHOSPHATASE 118 IU/L (46-116); ANION GAP 13 (8-16); ASPARTATE AMINO TRANSFERASE 44 U/L (10-37); BILIRUBIN,TOTAL 0.5 MG/DL (0.1-1.0); BLOOD UREA NITROGEN 72 MG/DL (7-18); CALCIUM 9.5 MG/DL (8.5-10.1); CHLORIDE 99 MMOL/L (99-107); CREATININE 2.77 MG/DL (0.60-1.10); GLUCOSE 134 MG/DL (70-104); MAGNESIUM 2.6 MG/DL (1.5-2.4); PHOSPHORUS 6.9 MG/DL (2.3-4.5); POTASSIUM 4.6 MMOL/L (3.5-5.1); SODIUM 137 MMOL/L (135-145); TOTAL CARBON DIOXIDE 24.8 MMOL/L (24-32); TOTAL PROTEIN 9.3 G/DL (6.4-8.2); TRIGLYCERIDES 262 MG/DL (20-135); eCRCL 33 ML/MIN; eGFR 25 ML/MIN
[2024-05-11 03:39] LABS: HEMOGLOBIN A1C 6.5 % (4.5-6.2)
[2024-05-11 03:55] LABS: BANDS% (MANUAL) 2 % (0-10); LYMPHOCYTES % (MANUAL) 16 % (21-51); MONOCYTES % (MANUAL) 3 % (2-12); NEUTROPHILS % (MANUAL) 76 % (42-75); TOTAL CELLS COUNTED 100
[2024-05-11 03:56] LABS: METAMYLEOCYTES% (MANUAL) 2 % (0-0); REACTIVE LYMPHOCYTES % 1 % (0-0)
[2024-05-11 03:57] LABS: ANISOCYTOSIS 1+; MICROCYTOSIS 1+; PLATELET ESTIMATE INCREASED; POLYCHROMASIA 1+; STOMATOCYTES 1+
[2024-05-11] MEDS: MEROPENEM 1GM/NACL 50ML IVPB 50 ML IV SCH (09:19)
[2024-05-11] MEDS: acetaminophen 325mg tablet PO PRN (09:24)
[2024-05-11 15:59] LABS: URIC ACID 5.1 MG/DL (3.5-7.2)
[2024-05-11] MEDS ORDERED: DEXTROSE 15 GM of carb/4 tabs (each vial/BOTTLE has 4 tablets) PEG PRN ×2 (17:02)
[2024-05-11] MEDS: metoprolol tartrate 50mg tablet PEG SCH (19:48)
[2024-05-11] MEDS: MEROPENEM 500MG/50ML-NS IVPB 50 ML IV SCH (20:04)
[2024-05-11] MEDS: fentaNYL/PF 50MCG/1 ML 2ML syringe IV PRN (22:33)
[2024-05-12] VITALS (49 sets, daily range): BP systolic 92–134; BP diastolic 53–90; PULSE 102–136; RESP 15–28; TEMP 96–100.4; O2SAT 94–100
[2024-05-12 03:03] LABS: BASOPHILS # (AUTO) 0.1 X10'3 (0-0.2); BASOPHILS % (AUTO) 0.7 % (0-1); EOSINOPHILS # (AUTO) 0.3 X10'3 (0-0.9); HEMATOCRIT 29.4 % (42.0-52.0); HEMOGLOBIN 9.3 g/dl (14.0-17.9); LYMPHOCYTES # (AUTO) 2.4 X10'3 (1.1-4.8); LYMPHOCYTES % (AUTO) 15.2 % (21-51); MEAN CORPUSCULAR HEMOGLOBIN 28.2 PG (27.0-31.0); MEAN CORPUSCULAR HGB CONC 31.6 g/dL (33.0-36.5); MEAN CORPUSCULAR VOLUME 89.1 FL (78-98); MEAN PLATELET VOLUME 7.6 FL (7.4-10.4); MONOCYTES # (AUTO) 1.3 X10'3 (0-0.9); MONOCYTES % (AUTO) 8.2 % (2-12); NEUTROPHILS # (AUTO) 11.8 X10'3 (1.8-7.7); NEUTROPHILS % (AUTO) 73.9 % (42-75); PLATELET COUNT 519 X10'3 (140-440); RED BLOOD COUNT 3.31 X10'6 (4.70-6.10); RED CELL DISTRIBUTION WIDTH 19.2 % (11.5-14.5); WHITE BLOOD COUNT 15.9 X10'3 (4.5-11.0)
[2024-05-12 03:19] LABS: ALANINE AMINOTRANSFERASE 98 U/L (12-78); ALBUMIN 2.4 G/DL (3.4-5.0); ALBUMIN/GLOBULIN RATIO 0.4 (1.1-1.5); ALKALINE PHOSPHATASE 108 IU/L (46-116); ANION GAP 14 (8-16); ASPARTATE AMINO TRANSFERASE 46 U/L (10-37); BILIRUBIN,TOTAL 0.5 MG/DL (0.1-1.0); BLOOD UREA NITROGEN 124 MG/DL (7-18); BUN/CREATININE RATIO 43.7 (10.0-20.0); CALCIUM 9.3 MG/DL (8.5-10.1); CHLORIDE 100 MMOL/L (99-107); CREATININE 2.84 MG/DL (0.60-1.10); GLUCOSE 147 MG/DL (70-104); MAGNESIUM 2.7 MG/DL (1.5-2.4); PHOSPHORUS 6.5 MG/DL (2.3-4.5); POTASSIUM 4.1 MMOL/L (3.5-5.1); SODIUM 138 MMOL/L (135-145); TOTAL CARBON DIOXIDE 24.5 MMOL/L (24-32); TOTAL PROTEIN 8.5 G/DL (6.4-8.2); eCRCL 32 ML/MIN; eGFR 25 ML/MIN
[2024-05-12 03:37] LABS: EOSINOPHILS % (MANUAL) 1 % (0-6); LYMPHOCYTES % (MANUAL) 12 % (21-51); METAMYLEOCYTES% (MANUAL) 2 % (0-0); MONOCYTES % (MANUAL) 8 % (2-12); NEUTROPHILS % (MANUAL) 75 % (42-75); REACTIVE LYMPHOCYTES % 2 % (0-0); TOTAL CELLS COUNTED 100
[2024-05-12 03:38] LABS: ANISOCYTOSIS 2+; MICROCYTOSIS 1+; PLATELET ESTIMATE INCREASED; POLYCHROMASIA 1+
[2024-05-12 03:47] LABS: ABG BASE EXCESS -2.5 mmol/L (-2.0-3.0); ABG HCO3 22.7 mmol/L (21.0-28.0); ABG OXYGEN SATURATION 97.6 % (94.0-98.0); ABG PCO2 (T) 40.9 mmHg (35.0-48.0); ABG PH (T) 7.362 (7.350-7.450); ABG PO2 (T) 103.7 mmHg (83.0-108.0); ALLEN'S TEST Modified; FCOHb 0.1 % (0.5-1.5); FHHb 2.4 % (0.0-5.0); FMetHb 0.3 % (0.0-1.5); FO2Hb 97.2 % (94.0-98.0); MODE prvc; PEEP 7 cm H2O; RESPIRATORY RATE 14 b/min; TIDAL VOLUME 450 mL; TOTAL HEMOGLOBIN 10.5 G/dl (13.5-17.5)
[2024-05-12 04:32] LABS: APTT 27 SECONDS (22-32); INR 1.1 INR; PROTHROMBIN TIME 11.7 SECONDS (9.0-12.0)
[2024-05-12] MEDS ORDERED: albumin (human) 25% 100ml IV 100 ML IV PRN (06:40)
[2024-05-12] MEDS: folic acid 1mg tablet PEG SCH (07:33)
[2024-05-12] MEDS: fluoxetine 20mg/5ml UD cup PEG SCH (07:35)
[2024-05-12] MEDS: MULTIVIT-MIN/FERROUS GLUCONATE 9 MG/15 ML LIQUID PEG SCH (07:35)
[2024-05-12] MEDS ORDERED: heparin 1,000unit/ml 10ml vial 10 ML ONE (10:57)
[2024-05-12] MEDS ORDERED: fentaNYL/PF 50MCG/1 ML 2ML syringe ONE (11:03)
[2024-05-12] MEDS ORDERED: midazolam 1 mg/ML 2ml injection ONE (11:18)
[2024-05-12] MEDS ORDERED: HYDROmorphone 1 mg/ml syringe IV PRN ×2 (11:50→15:30)
[2024-05-12] MEDS: HYDROmorphone 1 mg/ml syringe IV PRN ×2 (13:30→18:01)
[2024-05-12] MEDS: heparin 1,000unit/ml 10ml vial 10 ML IV ONE (14:55)
[2024-05-12] MEDS: heparin 1,000 units/ml 10ml inj IV ONE (14:56)
[2024-05-12] MEDS: heparin 1,000 units/ml 10ml inj HE ONE ×2 (14:57→15:06)
[2024-05-12] MEDS: EPOETIN ALFA-EPBX 20,000 UNIT/ML 1 ML MDV IV ONE (15:07)
[2024-05-12] MEDS: mannitol 12.5gm/50mL VIAL IV ONE (15:08)
[2024-05-12] MEDS: acetaminophen 325mg/10.15ml oral unit dose solution PEG PRN (17:15)
[2024-05-13] VITALS (34 sets, daily range): BP systolic 92–134; BP diastolic 51–89; PULSE 97–125; RESP 9–27; O2SAT 89–99
[2024-05-13 02:40] LABS: BASOPHILS # (AUTO) 0.2 X10'3 (0-0.2); BASOPHILS % (AUTO) 0.9 % (0-1); EOSINOPHILS # (AUTO) 1.2 X10'3 (0-0.9); EOSINOPHILS % (AUTO) 6.5 % (0-6); HEMATOCRIT 31.5 % (42.0-52.0); HEMOGLOBIN 10.1 g/dl (14.0-17.9); LYMPHOCYTES # (AUTO) 3.5 X10'3 (1.1-4.8); LYMPHOCYTES % (AUTO) 19.6 % (21-51); MEAN CORPUSCULAR HEMOGLOBIN 28.6 PG (27.0-31.0); MEAN CORPUSCULAR VOLUME 89.5 FL (78-98); MEAN PLATELET VOLUME 7.8 FL (7.4-10.4); MONOCYTES # (AUTO) 1.4 X10'3 (0-0.9); MONOCYTES % (AUTO) 7.8 % (2-12); NEUTROPHILS # (AUTO) 11.8 X10'3 (1.8-7.7); NEUTROPHILS % (AUTO) 65.2 % (42-75); PLATELET COUNT 580 X10'3 (140-440); RED BLOOD COUNT 3.52 X10'6 (4.70-6.10); WHITE BLOOD COUNT 18.1 X10'3 (4.5-11.0)
[2024-05-13] MEDS: simethicone 125mg capsule PO PRN (02:41)
[2024-05-13] MEDS: simethicone 80mg chew tab PEG PRN (02:56)
[2024-05-13 02:58] LABS: ALANINE AMINOTRANSFERASE 97 U/L (12-78); ALBUMIN 2.6 G/DL (3.4-5.0); ALBUMIN/GLOBULIN RATIO 0.4 (1.1-1.5); ALKALINE PHOSPHATASE 111 IU/L (46-116); ANION GAP 10 (8-16); ASPARTATE AMINO TRANSFERASE 47 U/L (10-37); BILIRUBIN,TOTAL 0.5 MG/DL (0.1-1.0); BLOOD UREA NITROGEN 75 MG/DL (7-18); BUN/CREATININE RATIO 32.1 (10.0-20.0); CALCIUM 9.5 MG/DL (8.5-10.1); CHLORIDE 99 MMOL/L (99-107); CREATININE 2.34 MG/DL (0.60-1.10); GLUCOSE 151 MG/DL (70-104); MAGNESIUM 2.4 MG/DL (1.5-2.4); PHOSPHORUS 5.9 MG/DL (2.3-4.5); PREALBUMIN 35.3 MG/DL (19-36); SODIUM 135 MMOL/L (135-145); TOTAL CARBON DIOXIDE 26.1 MMOL/L (24-32); eCRCL 39 ML/MIN; eGFR 31 ML/MIN
[2024-05-13 03:27] LABS: APTT 27 SECONDS (22-32); INR 1.1 INR; PROTHROMBIN TIME 11.6 SECONDS (9.0-12.0)
[2024-05-13 03:42] LABS: BANDS% (MANUAL) 1 % (0-10); LYMPHOCYTES % (MANUAL) 22 % (21-51); MONOCYTES % (MANUAL) 4 % (2-12); NEUTROPHILS % (MANUAL) 61 % (42-75); TOTAL CELLS COUNTED 100
[2024-05-13 03:43] LABS: EOSINOPHILS % (MANUAL) 9 % (0-6); METAMYLEOCYTES% (MANUAL) 3 % (0-0); PLATELET ESTIMATE INCREASED
[2024-05-13 03:44] LABS: ANISOCYTOSIS 2+; MICROCYTOSIS 1+; POLYCHROMASIA 1+
[2024-05-13] MEDS: levetiracetam 100mg/ml oral solution 5ml UD cup PEG SCH (20:18)
[2024-05-14] VITALS (40 sets, daily range): BP systolic 91–133; BP diastolic 51–84; PULSE 100–147; RESP 6–28; TEMP 97.9–99.2; O2SAT 90–99
[2024-05-14 03:59] LABS: BASOPHILS # (AUTO) 0.1 X10'3 (0-0.2); BASOPHILS % (AUTO) 0.8 % (0-1); EOSINOPHILS # (AUTO) 1.4 X10'3 (0-0.9); EOSINOPHILS % (AUTO) 9.2 % (0-6); HEMATOCRIT 29.4 % (42.0-52.0); HEMOGLOBIN 9.4 g/dl (14.0-17.9); LYMPHOCYTES # (AUTO) 1.9 X10'3 (1.1-4.8); LYMPHOCYTES % (AUTO) 12.5 % (21-51); MEAN CORPUSCULAR HEMOGLOBIN 28.6 PG (27.0-31.0); MEAN CORPUSCULAR VOLUME 89.4 FL (78-98); MEAN PLATELET VOLUME 7.7 FL (7.4-10.4); MONOCYTES # (AUTO) 1.1 X10'3 (0-0.9); MONOCYTES % (AUTO) 7.4 % (2-12); NEUTROPHILS # (AUTO) 10.7 X10'3 (1.8-7.7); NEUTROPHILS % (AUTO) 70.1 % (42-75); PLATELET COUNT 569 X10'3 (140-440); RED BLOOD COUNT 3.29 X10'6 (4.70-6.10); RED CELL DISTRIBUTION WIDTH 18.8 % (11.5-14.5); WHITE BLOOD COUNT 15.2 X10'3 (4.5-11.0)
[2024-05-14 04:17] LABS: ALANINE AMINOTRANSFERASE 82 U/L (12-78); ALBUMIN 2.6 G/DL (3.4-5.0); ALBUMIN/GLOBULIN RATIO 0.4 (1.1-1.5); ALKALINE PHOSPHATASE 104 IU/L (46-116); ANION GAP 12 (8-16); ASPARTATE AMINO TRANSFERASE 36 U/L (10-37); BILIRUBIN,TOTAL 0.4 MG/DL (0.1-1.0); BLOOD UREA NITROGEN 118 MG/DL (7-18); BUN/CREATININE RATIO 48.8 (10.0-20.0); CALCIUM 9.3 MG/DL (8.5-10.1); CHLORIDE 97 MMOL/L (99-107); CREATININE 2.42 MG/DL (0.60-1.10); GLUCOSE 133 MG/DL (70-104); MAGNESIUM 2.3 MG/DL (1.5-2.4); PHOSPHORUS 8.8 MG/DL (2.3-4.5); POTASSIUM 4.3 MMOL/L (3.5-5.1); SODIUM 135 MMOL/L (135-145); TOTAL CARBON DIOXIDE 25.7 MMOL/L (24-32); TOTAL PROTEIN 8.5 G/DL (6.4-8.2); eCRCL 38 ML/MIN; eGFR 30 ML/MIN
[2024-05-14 04:23] LABS: ABG BASE EXCESS -3.1 mmol/L (-2.0-3.0); ABG HCO3 22.6 mmol/L (21.0-28.0); ABG OXYGEN SATURATION 98.2 % (94.0-98.0); ABG PCO2 (T) 43.6 mmHg (35.0-48.0); ABG PH (T) 7.334 (7.350-7.450); ABG PO2 (T) 115.3 mmHg (83.0-108.0); ALLEN'S TEST POSITIVE; FCOHb 0.3 % (0.5-1.5); FHHb 1.8 % (0.0-5.0); FO2Hb 97.9 % (94.0-98.0); MODE VENT - CPAP; PATIENT TEMPERATURE 37.1; TOTAL HEMOGLOBIN 9.6 G/dl (13.5-17.5)
[2024-05-14 04:35] LABS: ANISOCYTOSIS 2+; BANDS% (MANUAL) 1 % (0-10); EOSINOPHILS % (MANUAL) 13 % (0-6); LYMPHOCYTES % (MANUAL) 13 % (21-51); METAMYLEOCYTES% (MANUAL) 2 % (0-0); MONOCYTES % (MANUAL) 5 % (2-12); NEUTROPHILS % (MANUAL) 66 % (42-75); PLATELET ESTIMATE INCREASED; POLYCHROMASIA 1+; TOTAL CELLS COUNTED 100
[2024-05-14 04:36] LABS: MICROCYTOSIS 1+
[2024-05-14 04:55] LABS: APTT 26 SECONDS (22-32); INR 1.1 INR; PROTHROMBIN TIME 11.4 SECONDS (9.0-12.0)
[2024-05-14] MEDS: EPOETIN ALFA-EPBX 20,000 UNIT/ML 1 ML MDV IV ONE (11:26)
[2024-05-14] MEDS: albumin (human) 25% 100ml IV 100 ML IV PRN (11:27)
[2024-05-14] MEDS: heparin 1,000 units/ml 10ml inj HE ONE ×2 (11:55→11:56)
[2024-05-14] MEDS: heparin 1,000 units/ml 10ml inj IV ONE (11:55)
[2024-05-14] MEDS: mannitol 12.5gm/50mL VIAL IV ONE (13:47)
[2024-05-15] MEDS ORDERED: lansoprazole 15mg solutab PEG SCH (08:00)
== END 2024-05-14 16:45 | DRG 130 ==
LOC: CICU 2S 13:04
PROVIDERS: ADMIT Internal Medicine Critical Care Medicine; ATTEND Internal Medicine Critical Care Medicine
PROC: 5A1955Z Respiratory Ventilation, Greater than 96 Consecutive Hours (ICD-10-PCS; 2024-05-03)
PROC: 02HV33Z Insertion of Infusion Device into Superior Vena Cava, Percutaneous Approach (ICD-10-PCS; principal; 2024-05-04)
PROC: B548ZZA Ultrasonography of Superior Vena Cava, Guidance (ICD-10-PCS; 2024-05-04)
PROC: 30233N1 Transfusion of Nonautologous Red Blood Cells into Peripheral Vein, Percutaneous Approach (ICD-10-PCS; 2024-05-04)
PROC: 5A1D70Z Performance of Urinary Filtration, Intermittent, Less than 6 Hours Per Day (ICD-10-PCS; 2024-05-04)
PROC: 02HV33Z Insertion of Infusion Device into Superior Vena Cava, Percutaneous Approach (ICD-10-PCS; 2024-05-05)
PROC: B548ZZA Ultrasonography of Superior Vena Cava, Guidance (ICD-10-PCS; 2024-05-05)
PROC: 0DB78ZX Excision of Stomach, Pylorus, Via Natural or Artificial Opening Endoscopic, Diagnostic (ICD-10-PCS; 2024-05-05)
PROC: 0W3P8ZZ Control Bleeding in Gastrointestinal Tract, Via Natural or Artificial Opening Endoscopic (ICD-10-PCS; 2024-05-05)
PROC: 5A1D70Z Performance of Urinary Filtration, Intermittent, Less than 6 Hours Per Day (ICD-10-PCS; 2024-05-05)
PROC: 5A1D70Z Performance of Urinary Filtration, Intermittent, Less than 6 Hours Per Day (ICD-10-PCS; 2024-05-06)
PROC: 5A1D70Z Performance of Urinary Filtration, Intermittent, Less than 6 Hours Per Day (ICD-10-PCS; 2024-05-07)
PROC: 5A1D70Z Performance of Urinary Filtration, Intermittent, Less than 6 Hours Per Day (ICD-10-PCS; 2024-05-09)
PROC: 5A1D70Z Performance of Urinary Filtration, Intermittent, Less than 6 Hours Per Day (ICD-10-PCS; 2024-05-10)
PROC: 02HV33Z Insertion of Infusion Device into Superior Vena Cava, Percutaneous Approach (ICD-10-PCS; 2024-05-12)
PROC: 0JH63XZ Insertion of Tunneled Vascular Access Device into Chest Subcutaneous Tissue and Fascia, Percutaneous Approach (ICD-10-PCS; 2024-05-12)
PROC: B5181ZA Fluoroscopy of Superior Vena Cava using Low Osmolar Contrast, Guidance (ICD-10-PCS; 2024-05-12)
PROC: B548ZZA Ultrasonography of Superior Vena Cava, Guidance (ICD-10-PCS; 2024-05-12)
PROC: 5A1D70Z Performance of Urinary Filtration, Intermittent, Less than 6 Hours Per Day (ICD-10-PCS; 2024-05-12)
PROC: 5A09357 Assistance with Respiratory Ventilation, Less than 24 Consecutive Hours, Continuous Positive Airway Pressure (ICD-10-PCS; 2024-05-13)
PROC: 5A09357 Assistance with Respiratory Ventilation, Less than 24 Consecutive Hours, Continuous Positive Airway Pressure (ICD-10-PCS; 2024-05-14)
PROC: 5A1D70Z Performance of Urinary Filtration, Intermittent, Less than 6 Hours Per Day (ICD-10-PCS; 2024-05-14)
DX: J15.0 Pneumonia due to Klebsiella pneumoniae (principal); N17.9 Acute kidney failure, unspecified; K25.4 Chronic or unspecified gastric ulcer with hemorrhage; I27.20 Pulmonary hypertension, unspecified; K56.7 Ileus, unspecified; Z93.0 Tracheostomy status; J80 Acute respiratory distress syndrome; G40.909 Epilepsy, unspecified, not intractable, without status epilepticus; I48.91 Unspecified atrial fibrillation; Z20.822 Contact with and (suspected) exposure to COVID-19; D64.9 Anemia, unspecified; N18.9 Chronic kidney disease, unspecified; Z16.24 Resistance to multiple antibiotics; N18.4 Chronic kidney disease, stage 4 (severe); E78.1 Pure hyperglyceridemia; F10.139 Alcohol abuse with withdrawal, unspecified; D75.839 Thrombocytosis, unspecified; F11.10 Opioid abuse, uncomplicated; I12.9 Hypertensive chronic kidney disease with stage 1 through stage 4 chronic kidney disease, or unspecified chronic kidney disease; K29.71 Gastritis, unspecified, with bleeding; Z91.199 Patient's noncompliance with other medical treatment and regimen due to unspecified reason; Z93.1 Gastrostomy status; Z72.0 Tobacco use
CPT/HCPCS: 36415; 36430; 36558; 36600; 43239; 43255; 70450; 70486; 71045; 71250; 72125; 74176; 76700; 76937; 77001; 80053; 80202; 80305; 81001; 82570; 82728; 82803; 82948; 83036; 83540; 83550; 83605; 83735; 84100; 84133; 84134; 84145; 84156; 84300; 84443; 84466; 84478; 84540; 84550; 85007; 85018; 85025; 85027; 85610; 85730; 86885; 86900; 86901; 86920; 87040; 87070; 87077; 87088; 87186; 87324; 87340; 87449; 87811; 93005; 93306; 94002; 94003; 94760; 94799; 97110; 97161; 97530; 97535; 99152; 99153; 99285; A4314; A4333; A4623; A4628; A5200; A6209; A6212; A6213; A6258; A6449; A7526; A9270; C1750; C1751; C1769; C1894; E1594; G0257; G0378; J0131; J0171; J0692; J1171; J1644; J1815; J1940; J1953; J2150; J2185; J2250; J2470; J2704; J2997; J3010; J3370; J3490; J7030; J7040; J7050; J7120; P9016; P9047; Q4081